=== PATIENT | female | born 1970 | race Caucasian/White ===

== ENCOUNTER → 2017-12-20 15:33 | Outpatient (CLI) | payer OTHER, SELFPAY ==
[2017-12-20 15:57] LABS: Basophils # 0.1 K/mm3 (0-0.2); Basophils % 0.8 % (0.1-2.0); Eosinophils # 0.1 K/mm3 (0.0-0.4); Eosinophils % 0.9 % (0.1-12.0); Hematocrit 40.5 % (37.0-47.0); Hemoglobin 13.4 g/dL (12.2-16.2); Lymphocytes # 2.2 K/mm3 (0.7-4.5); Lymphocytes % 35.5 K/mm3 (10-50); Mean Corpuscular Hemoglobin 29.1 pg (27.0-31.2); Mean Corpuscular Volume 88.3 fl (81-99); Monocytes # 0.4 K/mm3 (0.1-1.0); Monocytes % 6.8 % (1.7-9.3); Neutrophils # 3.4 K/mm3 (1.8-7.8); Neutrophils % 56.1 % (37.0-80.0); Platelet Count 457 K/mm3 (142-424); Red Blood Count 4.59 M/mm3 (4.20-5.40); Red Cell Distribution Width 14.3 % (11.5-17.5); White Blood Count 6.1 K/mm3 (4.8-10.8)
[2017-12-20 19:44] LABS: Alanine Aminotransferase 32 U/L (12-78); Alkaline Phosphatase 85 U/L (46-116); Anion Gap 17.6 mEq/L (5-15); Aspartate Amino Transferase 42 U/L (15-37); Bilirubin,Total 0.2 mg/dL (0.2-1.0); Blood Urea Nitrogen 7 mg/dL (7-18); Carbon Dioxide 23 mmol/L (21.0-32.0); Chloride 91 mmol/L (98-107); Chol/HDL Ratio 1.6 (1-3.5); Cholesterol 202 mg/dL (140-200); Creatinine,Serum 0.68 mg/dL (0.55-1.02); Estimated Glomerular Filt Rate 92 ml/min (>60); Free Thyroxine Index 1.5 ug/dL (5.93-13.13); GFR (African American) 112 ML/MIN (>60); Globulin 3.9 gm/dl (1.3-3.2); Glucose 80 mg/dL (74-106); HDL Cholesterol 127 mg/dL (29-89); LDL Cholesterol 55 mg/dL (0-130); Potassium 4.6 mmoL/L (3.5-5.1); Sodium 127 mmol/L (136-145); T4 (Thyroxine) 4.4 ug/dl (4.7-13.3); Thyroid Stimulating Hormone 1.33 uIU/ml (0.358-3.740); Total Protein,Serum 7.9 gm/dL (6.4-8.2); Triglycerides 102 mg/dL (30-200); Triiodothryronine (T3) Uptake 34 % (31-39); VLDL Cholesterol 20 mg/dL (0-40)
[2017-12-22 09:11] LABS: LH 18.3 mIU/mL (.)
== END ==
PROVIDERS: Family Provider Family Medicine; PCP Family Medicine; Visit Provider Nurse Practitioner Obstetrics & Gynecology
DX: Z01.419 Encounter for gynecological examination (general) (routine) without abnormal findings (principal)
CPT/HCPCS: 36415; 80053; 80061; 83001; 83002; 84436; 84443; 84479; 85025

== ENCOUNTER → 2017-12-26 13:44 | Outpatient (CLI) | payer OTHER, SELFPAY ==
--- NOTE | 2017-12-26 13:46 | MM_ITS ---
MM Dig screening mamm BI w/CAD CAD Screening ORDERING PHYSICIAN : Kayden Mcconnell MD PATIENT AGE: 47 years GENDER: Female COMPARISON: Previous mammograms: December 2014 and November 2012, January 2011 INDICATION: No hormones. No new complaints. Family history. Maternal with breast cancer, in her 40s? TECHNIQUE: Standard CC and MLO images were obtained. R2 CAD reviewed. FINDINGS: Fairly Dense with inhomogeneous breast pattern bilaterally with mild asymmetry . Today's digital mammography does better penetrate this dense breast better than the previous film screen study from 2013. RIGHT BREAST: Stable inhomogeneous dense breast with scattered areas of density but No significant new findings. Follow-up in one year on right LEFT BREAST:. Asymmetric area of density inferior medial left breast on MLO view. This is more prominent than previous 2015 mammogram studies, but suspect is most likely summation shadow. Similar feature noted on 2012 and 2010 studies.. There is also a density at the deep breast on cc view labeled B which likely summation shadow as it seems to dissipate on the axillary cc view.. Last wall also note area of increasing density at superior breast on MLO view and compared to 2015. It this labeled C.. Again I favor is most likely summation shadow again with more similar appearance here dating back to 2012. I suggest the patient return for a full 90 degrees view left breast as well as a spot MLO view of A and C; with spot CC view of area labeled B. On Ultrasound would be suggested as well to further by evaluate left breast given its fairly dense inhomogeneous character ======IMPRESSION: LEFT BREAST. Areas of focal density labeled A, B and C are most likely summation shadows-although more evident than on 2015 mammogram I suspect these are fibroglandular elements which are similar to 2013 exam. However given the focal dense character of these areas and this dense breast I would recommend spot views as well as ultrasound to further evaluate left breast . RIGHT BREAST. No new areas of concern follow-up in one year on right . BI-RADS Category: 0 Need Additional Imaging Evaluaiton RECOMMENDED FOLLOW-UP: IMM - IMMEDIATE FOLLOW-UP RECOMMENDED Additional spot views left breast recommended, along with subsequent ultrasound. (A letter has been sent to the patient regarding results of the study.)
--- NOTE | 2017-12-26 13:46 | US_ITS ---
US transvaginal HISTORY: ITS.REASON: US T/V- Abnormal Vaginal Bleeding ORDERING PHYSICIAN: Kayden Mcconnell MD PATIENT AGE: 47 years COMPARISON: None FINDINGS: The uterus is 7 x 3.7 x 4.9 cm with a combined endometrial thickness of 8 mm. The left ovary is 1.7 x 1.1 cm. The right ovary is 2 x 0.9 cm. There is minimal amount fluid inferior to the uterus. Small nabothian cysts are present. No adnexal mass apparent. IMPRESSION: 1. Minimal amount fluid in the cul-de-sac otherwise negative pelvic ultrasound
== END ==
PROVIDERS: Family Provider Family Medicine; PCP Family Medicine; Visit Provider Nurse Practitioner Obstetrics & Gynecology
DX: N93.9 Abnormal uterine and vaginal bleeding, unspecified (principal); Z12.31 Encounter for screening mammogram for malignant neoplasm of breast
CPT/HCPCS: 76830; 77067

== ENCOUNTER 2021-01-13 06:06 | Day surgery (SDC) | payer MEDICAID, SELFPAY ==
[2021-01-12 16:26] VITALS: BMI 17.7
[2021-01-13] VITALS (7 sets, daily range): BP systolic 127–149; BP diastolic 71–86; PULSE 84–96; RESP 16–20; TEMP 36.3–37.2; O2SAT 99–100
--- NOTE | 2021-01-13 06:24 | XR_ITS ---
PROCEDURE: XR LUMBAR SPINE MIN 4V CLINICAL INDICATION: LOW BACK PAIN COMPARISON: No exams were available for comparison FINDINGS: Minimal lumbar curvature convex right. Degenerative disc disease L2-L3, L3-L4, and L4-5 greatest at the L2-L3 level. No fracture or dislocation. No lytic or blastic change. Arthritic changes noted involving the left SI joint. IMPRESSION: Degenerative changes lumbar spine and left SI joint Dictated by: Juan Hansen MD 01/13/2021 07:24 Juan Hansen MD in [place] 01/13/2021 07:24
[2021-01-13 08:04] LABS: Coronavirus 19 IgG Antibody Negative (Negative); Coronavirus 19 IgM Antibody Negative (Negative)
== END 2021-01-13 09:10 | disposition home or self-care (01) ==
PROVIDERS: PCP Nurse Practitioner; Visit Provider Ophthalmology
PROC: (CPT 66984; principal; 2021-01-13 08:30)
DX: H25.813 Combined forms of age-related cataract, bilateral (principal); H53.143 Visual discomfort, bilateral; H02.839 Dermatochalasis of unspecified eye, unspecified eyelid; F41.9 Anxiety disorder, unspecified; J45.909 Unspecified asthma, uncomplicated; K21.9 Gastro-esophageal reflux disease without esophagitis; I10 Essential (primary) hypertension; Z88.6 Allergy status to analgesic agent; Z79.899 Other long term (current) drug therapy
CPT/HCPCS: 66984; 72110; 86328; V2632

== ENCOUNTER → 2021-01-24 09:12 | Outpatient (CLI) | payer MEDICAID, SELFPAY | PROVIDERS: Visit Provider Ophthalmology | DX: Z01.812 Encounter for preprocedural laboratory examination (principal); Z11.52 Encounter for screening for COVID-19; H25.11 Age-related nuclear cataract, right eye | CPT/HCPCS: U0003 ==

== ENCOUNTER 2021-01-27 08:02 | Day surgery (SDC) | payer MEDICAID, SELFPAY ==
[2021-01-21 11:00] VITALS: BMI 18.1
[2021-01-27 08:12] VITALS: BP 147/99; PULSE 95; RESP 18; O2SAT 100
[2021-01-27 09:25] VITALS: BP 134/77; PULSE 89; RESP 16; O2SAT 100
[2021-01-27 09:30] VITALS: BP 125/65; PULSE 93; RESP 16; O2SAT 100
[2021-01-27 09:35] VITALS: BP 128/68; PULSE 91; RESP 16; O2SAT 100
[2021-01-27 09:41] VITALS: BP 174/91; PULSE 101; RESP 16; TEMP 36.4; O2SAT 98
== END 2021-01-27 09:51 | disposition home or self-care (01) ==
LOC: OR 08:03
PROVIDERS: PCP Nurse Practitioner; Visit Provider Ophthalmology
PROC: (CPT 66984; principal; 2021-01-27 09:30)
DX: H25.813 Combined forms of age-related cataract, bilateral (principal); H53.143 Visual discomfort, bilateral; H02.839 Dermatochalasis of unspecified eye, unspecified eyelid; F41.9 Anxiety disorder, unspecified; J45.909 Unspecified asthma, uncomplicated; K21.9 Gastro-esophageal reflux disease without esophagitis; I10 Essential (primary) hypertension; Z88.6 Allergy status to analgesic agent; Z79.899 Other long term (current) drug therapy
CPT/HCPCS: 66984; V2632

== ENCOUNTER 2024-05-04 14:33 | Outpatient (CLI) | payer MEDICAID, SELFPAY ==
[2024-05-04 18:17] LABS: Basophils % 0.4 % (0.1-2.0); Eosinophils # 0.2 K/mm3 (0.0-0.4); Eosinophils % 1.9 % (0.1-12.0); Hematocrit 36.9 % (37.0-47.0); Hemoglobin 11.4 g/dL (12.2-16.2); Lymphocytes # 2.2 K/mm3 (0.7-4.5); Lymphocytes % 23.5 % (10-50); Mean Corpuscular Hemoglobin 26.9 pg (27.0-31.2); Mean Corpuscular Volume 86.8 fl (81-99); Monocytes # 0.7 K/mm3 (0.1-1.0); Monocytes % 7.1 % (1.7-9.3); Neutrophils # 6.2 K/mm3 (1.8-7.8); Neutrophils % 67.1 % (37.0-80.0); Platelet Count 609 K/mm3 (142-424); Red Blood Count 4.25 M/mm3 (4.20-5.40); Red Cell Distribution Width 15.4 % (11.5-17.5); White Blood Count 9.2 K/mm3 (4.8-10.8)
[2024-05-04 18:20] LABS: Hemoglobin A1C 4.9 % (4.0-6.0)
[2024-05-04 18:34] LABS: Alanine Aminotransferase 19 U/L (12-78); Albumin Level 4.2 g/dl (3.5-5.0); Albumin/Globulin Ratio 1.4 (1.1-1.8); Alkaline Phosphatase 80 U/L (38-126); Anion Gap 10.2 mEq/L (5-15); Aspartate Amino Transferase 35 U/L (14-36); Bilirubin,Total 0.5 mg/dl (0.2-1.3); Blood Urea Nitrogen 9 mg/dl (7-17); Calcium 9.3 mg/dl (8.4-10.2); Carbon Dioxide 23 mmol/L (22.0-30.0); Chloride 97 mmol/L (98-107); Cholesterol 189 mg/dl (140-200); Estimated Glomerular Filt Rate 104 ml/min (>60); GFR (African American) 126 ML/MIN (>60); Globulin 3.1 g/dL (1.3-3.2); Glucose 96 mg/dl (74-100); Potassium 4.2 mmoL/L (3.5-5.1); Sodium 126 mmol/L (136-145); Total Protein,Serum 7.3 g/dl (6.3-8.2); Triglycerides 72 mg/dl (30-150); VLDL Cholesterol 14 mg/dL (0-40)
[2024-05-04 18:40] LABS: Erythrocyte Sedimentation Rate 20 mm/hr (0-30)
[2024-05-04 18:44] LABS: Free Thyroxine Index 2.6 ug/dL (5.93-13.13); T4 (Thyroxine) 6.4 ug/dl (5.53-11.0); Triiodothryronine (T3) Uptake 40 % (23.5-40.5)
[2024-05-04 18:45] LABS: 25-OH Vitamin D, Total 31.9 ng/mL (30-100); Direct LDL Cholesterol 39.32 mg/dL (100-129)
[2024-05-04 18:58] LABS: Chol/HDL Ratio 1.7 (1-3.5); HDL Cholesterol 114 mg/dl (40-60); Thyroid Stimulating Hormone 1.09 uIU/mL (0.465-4.68)
== END 2024-05-04 23:59 | disposition home or self-care (01) ==
LOC: LAB.DROPOF 05-05 16:15
PROVIDERS: PCP Family Medicine; Visit Provider Family Medicine
DX: I10 Essential (primary) hypertension (principal); E03.9 Hypothyroidism, unspecified; R53.83 Other fatigue; M25.512 Pain in left shoulder; M53.3 Sacrococcygeal disorders, not elsewhere classified; G89.29 Other chronic pain; M25.50 Pain in unspecified joint; F17.210 Nicotine dependence, cigarettes, uncomplicated
CPT/HCPCS: 80050; 80053; 80061; 82306; 83036; 84436; 84443; 84479; 85025; 85651

== ENCOUNTER 2024-08-27 14:16 | Outpatient (CLI) | payer MEDICAID, SELFPAY ==
--- NOTE | 2024-08-27 14:20 | XR_ITS ---
FINAL REPORT CLINICAL HISTORY: .pain FINDINGS: SINGLE VIEW PELVIS: A single view of the pelvis was obtained. There is no acute fracture or dislocation. Vizualized joint spaces are normally aligned. Soft tissues are unremarkable. IMPRESSION: No acute bony abnormality. Reviewed, Interpreted and Dictated by Larry Salgado III, MD Transcribed by Susy Kim Authenticated and [facility]
--- NOTE | 2024-08-27 14:20 | XR_ITS ---
FINAL REPORT CLINICAL HISTORY: .pain FINDINGS: LUMBAR SPINE AP and lateral views were obtained. There is no acute fracture or malalignment. There is moderate to severe degenerative change, greatest at L4-5 and L5-S1. There is 8 mm of right lateral subluxation of L4 on L5 where there is also vacuum disc phenomenon. Dextroscoliosis is noted. Vertebrae are normal height. Prevertebral soft tissues are unremarkable. IMPRESSION: No acute bony abnormality. Moderate to severe degenerative changes with lateral subluxation of L4 and L5. Reviewed, Interpreted and Dictated by Larry Salgado III, MD Transcribed by Susy Kim Authenticated and [facility]
--- NOTE | 2024-08-27 14:20 | XR_ITS ---
FINAL REPORT CLINICAL HISTORY: .pain FINDINGS: LEFT SHOULDER 3 views of the left shoulder were obtained. There is no acute fracture or dislocation. There are mild degenerative changes of the acromioclavicular and glenohumeral joints. Visualized joint spaces are normally aligned. Soft tissues are unremarkable. IMPRESSION: No acute bony abnormality. Reviewed, Interpreted and Dictated by Larry Salgado III, MD Transcribed by Susy Kim Authenticated and [facility]
[2024-08-27 19:10] LABS: Alanine Aminotransferase 31 U/L (12-78); Albumin Level 4.1 g/dl (3.5-5.0); Albumin/Globulin Ratio 1.6 (1.1-1.8); Alkaline Phosphatase 79 U/L (38-126); Anion Gap 10.2 mEq/L (5-15); Aspartate Amino Transferase 44 U/L (14-36); Bilirubin,Total 0.5 mg/dl (0.2-1.3); Blood Urea Nitrogen 5 mg/dl (7-17); Calcium 9.2 mg/dl (8.4-10.2); Carbon Dioxide 24 mmol/L (22.0-30.0); Chloride 99 mmol/L (98-107); Estimated Glomerular Filt Rate 104 ml/min (>60); GFR (African American) 126 ML/MIN (>60); Globulin 2.6 g/dL (1.3-3.2); Glucose 93 mg/dl (74-100); Potassium 4.2 mmoL/L (3.5-5.1); Sodium 129 mmol/L (136-145); Total Protein,Serum 6.7 g/dl (6.3-8.2)
[2024-08-27 19:21] LABS: T4 (Thyroxine) 4.8 ug/dl (5.53-11.0); Triiodothryronine (T3) Uptake 42 % (23.5-40.5)
[2024-08-27 19:35] LABS: Thyroid Stimulating Hormone 0.63 uIU/mL (0.465-4.68)
[2024-08-27 21:06] LABS: Iron 46 ug/dL (37-170)
[2024-08-27 21:15] LABS: Total Iron Binding Capacity 332 ug/dL (265-497)
== END 2024-08-27 23:59 | disposition home or self-care (01) ==
LOC: LAB 14:18
PROVIDERS: PCP Family Medicine; Visit Provider Family Medicine
DX: M53.3 Sacrococcygeal disorders, not elsewhere classified (principal); G89.29 Other chronic pain; M25.512 Pain in left shoulder; M25.612 Stiffness of left shoulder, not elsewhere classified; M54.9 Dorsalgia, unspecified; J44.9 Chronic obstructive pulmonary disease, unspecified; E03.9 Hypothyroidism, unspecified; R39.9 Unspecified symptoms and signs involving the genitourinary system
CPT/HCPCS: 72100; 72170; 73030; 80053; 83540; 83550; 84436; 84443; 84479; 87086

== ENCOUNTER 2024-09-10 15:29 | Outpatient (CLI) | payer MEDICAID, SELFPAY ==
[2024-09-10 15:22] LABS: Microscopic, Urine URINE MICROSCOPIC (MICROSCOPIC)
[2024-09-10 15:28] LABS: Appearance,Urine CLEAR (Clear); Blood, Urine Negative (Negative); Color,Urine YELLOW (Yellow); Glucose,Urine (UA) Negative (Negative); Ketones,Urine Negative (Negative); Leukocyte Esterase,Urine 1+ (Negative); Nitrate,Urine Negative (Negative); Protein,Urine Negative (Negative); Specific Gravity, Urine 1.025 (1.005-1.030); Urobilinogen,Urine 0.2 EU/dl (0.2)
[2024-09-10 15:34] LABS: Bilirubin,Urine Negative (Negative)
[2024-09-10 16:15] LABS: Bacteria,Urine 4+ /lpf; Squamous Epithelial Cell,Urine 20-50 #/hpf (0-5); WBC,Urine 20-50 #/hpf (0-3)
== END 2024-09-10 23:59 | disposition home or self-care (01) ==
LOC: LAB.DROPOF 15:30
PROVIDERS: PCP Urology; Visit Provider Urology
DX: N32.81 Overactive bladder (principal); N39.3 Stress incontinence (female) (male); N39.0 Urinary tract infection, site not specified
CPT/HCPCS: 81001; 87086

== ENCOUNTER 2025-02-21 13:08 | Outpatient (CLI) | payer MEDICAID, SELFPAY ==
[2025-02-21 13:39] LABS: Blood Urea Nitrogen 6 mg/dl (7-17); Estimated Glomerular Filt Rate 128 ml/min (>60); GFR (African American) 155 ML/MIN (>60)
--- NOTE | 2025-02-21 13:45 | MR_ITS ---
FINAL REPORT TECHNIQUE: Multiplanar and multisequence MR imaging was performed through the lumbar spine before and after contrast administration. CLINICAL HISTORY: ddd FINDINGS: There is grade 1 anterior spondylolisthesis of L5 on S1. Mild scoliosis is identified. The vertebral body heights are preserved. There is no bone marrow edema. There is no abnormal bone marrow enhancement. The cord terminates at L2. There is normal signal within the distal cord. There is no abnormal enhancement in the distal cord. There is no acute paraspinal abnormality. There is no loculated fluid collection. L1-L2: An annular disc bulge is present. There is no canal stenosis or neuroforaminal narrowing. L2-L3: An annular disc bulge is present with degenerative endplate changes and facet osteoarthropathy. Mild to moderate right neuroforaminal narrowing. L3-L4: An annular disc bulge is present with degenerative endplate changes and facet osteoarthropathy. Mild to moderate bilateral neuroforaminal narrowing. L4-L5: An annular disc bulge is present with degenerative endplate changes and facet osteoarthropathy. Mild central stenosis. Severe, left greater than right neuroforaminal narrowing. L5-S1: An annular disc bulge is present with degenerative endplate changes and facet osteoarthropathy. Mild central stenosis. Severe right moderate left neuroforaminal narrowing. IMPRESSION: Grade 1 anterior spondylolisthesis of L5 on S1. Multilevel degenerative disc disease, most pronounced at L4-5 and L5-S1. No abnormal contrast-enhancement. Reviewed, Interpreted and Dictated by Judith Reardon MD Transcribed by Arabella Silva Authenticated and [facility]
[2025-02-21] MEDS: GADOTERIDOL INJ 10ML SYRINGE 8 ML IV (14:54)
[2025-02-21] MEDS: SODIUM CHLORIDE 0.9% 10ML SYR (RAD ONLY) 10 ML IV (14:54)
== END 2025-02-21 23:59 | disposition home or self-care (01) ==
LOC: RAD 13:09
PROVIDERS: PCP Family Medicine; Visit Provider Family Medicine
DX: M43.17 Spondylolisthesis, lumbosacral region (principal); M51.369 Other intervertebral disc degeneration, lumbar region without mention of lumbar back pain or lower extremity pain; M51.379 Other intervertebral disc degeneration, lumbosacral region without mention of lumbar back pain or lower extremity pain
CPT/HCPCS: 36415; 72158; 82565; 84520; A9576